=== PATIENT | female | born 1990 | race Caucasian/White ===

== ENCOUNTER → 2023-12-24 09:01 | Outpatient (REF) | payer BC, SELFPAY ==
[2023-12-24 10:00] LABS: % Basophils 0.4 % (0-2); % Eosinophils 0.8 % (0-6); % Immature Granulocytes 0.4 % (0-0.5); % Lymphocytes 29.8 % (20.5-51.1); % Monocytes 6.5 % (1.7-9.3); % Neutrophils 62.1 % (42.2-75.2); Absolute Eosinophils 0.1 10^3/uL (0-0.7); Absolute Lymphocytes 2.5 10^3/uL (1.2-3.4); Absolute Monocytes 0.5 10^3/uL (0.1-0.6); Absolute Neutrophils 5.2 10^3/uL (1.4-6.5); Hematocrit 38.1 % (37.0-47.0); Mean Corp Hgb Conc. 34.1 g/dL (33.0-37.0); Mean Corpuscular Hgb 30.9 pg (27.0-31.0); Mean Corpuscular Volume 90.5 fL (81.0-99.0); Mean Platelet Volume 9.1 fL (7.4-10.4); Nucleated Red Blood Cells % 0 %; Platelet Count 371 10^3/uL (130-400); Red Blood Cell Count 4.21 10^6/uL (4.20-5.40); Red Cell Dist. Width 12.1 % (11.5-14.5); White Blood Cell Count 8.4 10^3/uL (4.8-10.8)
[2023-12-24 10:42] LABS: ALT (SGPT) 18 U/L (0-35); AST (SGOT) 20 U/L (14-36); Albumin 4.6 g/dl (3.5-5.0); Alkaline Phosphatase 53 U/L (38-126); Blood Urea Nitrogen 14 mg/dl (7-17); Calcium 9.3 mg/dl (8.4-10.2); Carbon Dioxide 24 mmol/L (22-30); Chloride 101 mmol/L (98-107); Glucose 107 mg/dl (70-99); HDL Cholesterol 53 mg/dl; LDL Cholesterol, Calculated 145 mg/dl; Potassium 4.6 mmol/L (3.5-5.1); Sodium 138 mmol/L (135-145); Total Bilirubin 0.3 mg/dl (0.2-1.3); Total Cholesterol 225 mg/dl (50-199); Total Protein 7.1 g/dl (6.3-8.2); Triglyceride 137 mg/dl (10-149); Very Low Density Lipoprotein 27 mg/dl (0-30); eGFR > 60.00
[2023-12-26 08:13] LABS: Quantiferon Mitogen minus NIL 9.95 IU/mL; Quantiferon NIL 0.05 IU/mL; Quantiferon Plus TB2 minus NIL 1.57 IU/mL (<=0.34); Quantiferon TB Gold Plus Positive (Negative)
== END ==
LOC: REG 09:01
PROVIDERS: ATTENDING PHYSICIAN Physician Assistant
DX: R76.12 Nonspecific reaction to cell mediated immunity measurement of gamma interferon antigen response without active tuberculosis (principal); Z13.1 Encounter for screening for diabetes mellitus; Z13.29 Encounter for screening for other suspected endocrine disorder
CPT/HCPCS: 36415; 80053; 80061; 85025; 86480

== ENCOUNTER → 2024-09-27 15:01 | Outpatient (REF) | payer OTHER, SELFPAY | LOC: PNTC 15:01 | PROVIDERS: ATTENDING PHYSICIAN Obstetrics & Gynecology | DX: O24.419 Gestational diabetes mellitus in pregnancy, unspecified control (principal) | CPT/HCPCS: 59025 ==

== ENCOUNTER 2024-10-08 14:43 | Inpatient (IN) | payer OTHER, SELFPAY ==
[2024-10-08 14:59] VITALS: BP 143/93; BMI 39.0
[2024-10-08] MEDS: NSS 1000 IV (16:10)
[2024-10-08 16:23] LABS: Hematocrit 34.0 % (37.0-47.0); Hemoglobin 11.6 g/dL (12.0-16.0); Mean Corp Hgb Conc. 34.1 g/dL (33.0-37.0); Mean Corpuscular Volume 89.2 fL (81.0-99.0); Platelet Count 263 10^3/uL (130-400); Red Cell Dist. Width 13.3 % (11.5-14.5)
[2024-10-08 16:23] LABS: Urine Character Clear (Clear)
[2024-10-08] MEDS: PITOCIN 30 UNITS/NSS 500 ML IV (16:25)
[2024-10-08 16:33] LABS: Urine Red Blood Cell 0-2 /HPF (0-2); Urine Squamous Cell 16-20 /LPF (Few); Urine White Cell 0-2 /HPF (0-5)
[2024-10-08 16:43] LABS: ALT (SGPT) 13 U/L (0-35); AST (SGOT) 23 U/L (14-36); Albumin 3.8 g/dl (3.5-5.0); Alkaline Phosphatase 145 U/L (38-126); Blood Urea Nitrogen 9 mg/dl (7-17); Calcium 8.8 mg/dl (8.4-10.2); Carbon Dioxide 21 mmol/L (22-30); Chloride 107 mmol/L (98-107); Estimated Creatinine Clearance > 125 ml/min; Glucose 152 mg/dl (70-99); Potassium 4.3 mmol/L (3.5-5.1); Sodium 134 mmol/L (135-145); Total Protein 6.3 g/dl (6.3-8.2); eGFR > 60.00
[2024-10-08 17:17] LABS: Glucose - Point of Care 133 mg/dl (70-99)
[2024-10-08] MEDS: NOVOLIN R INSULIN INFUSION 100 IV (18:07)
[2024-10-08] MEDS: LR 1000 IV (18:08)
[2024-10-08 19:18] LABS: Glucose - Point of Care 80 mg/dl (70-99)
[2024-10-08] MEDS: TRANDATE 200 MG PO (19:40)
[2024-10-08] MEDS: PENICILLIN 110 UNITS IV (19:45)
[2024-10-08 20:20] LABS: Glucose - Point of Care 92 mg/dl (70-99)
[2024-10-08] MEDS: FENTANYL/BUPIVACAINE 100 EPIDURAL (21:40)
[2024-10-08] MEDS: SUBLIMAZE 100 MCG EPIDURAL (21:40)
[2024-10-08 22:24] LABS: Glucose - Point of Care 108 mg/dl (70-99)
[2024-10-08] MEDS: PENICILLIN 55 UNITS IV (23:36)
[2024-10-09 00:30] LABS: Glucose - Point of Care 111 mg/dl (70-99)
[2024-10-09] MEDS: LR 1000 IV (00:30)
[2024-10-09] MEDS: COLACE 100 MG PO ×2 (08:47→20:19)
[2024-10-09] MEDS: PRENATAL PLUS 1 TABLET PO (08:47)
[2024-10-09] MEDS: MOTRIN 600 MG PO ×2 (08:47→20:18)
[2024-10-09] MEDS: TRANDATE 200 MG PO ×2 (08:48→20:19)
[2024-10-09] MEDS: PROCTOFOAM-HC FOAM 10 GM RECTAL (20:49)
[2024-10-10 05:04] LABS: Hematocrit 30.3 % (37.0-47.0); Hemoglobin 10.2 g/dL (12.0-16.0); Mean Corp Hgb Conc. 33.7 g/dL (33.0-37.0); Mean Corpuscular Volume 90.2 fL (81.0-99.0); Platelet Count 214 10^3/uL (130-400); Red Cell Dist. Width 13.5 % (11.5-14.5)
[2024-10-10 05:28] LABS: ALT (SGPT) 16 U/L (0-35); AST (SGOT) 29 U/L (14-36); Albumin 3.1 g/dl (3.5-5.0); Alkaline Phosphatase 113 U/L (38-126); Blood Urea Nitrogen 12 mg/dl (7-17); Calcium 8.4 mg/dl (8.4-10.2); Carbon Dioxide 23 mmol/L (22-30); Chloride 109 mmol/L (98-107); Estimated Creatinine Clearance > 125 ml/min; Glucose 112 mg/dl (70-99); Potassium 3.9 mmol/L (3.5-5.1); Sodium 135 mmol/L (135-145); Total Protein 5.3 g/dl (6.3-8.2); eGFR > 60.00
[2024-10-10] MEDS: COLACE 100 MG PO ×2 (08:00→20:33)
[2024-10-10] MEDS: TRANDATE 200 MG PO ×2 (08:01→20:32)
[2024-10-10] MEDS: PRENATAL PLUS 1 TABLET PO (08:01)
[2024-10-10] MEDS: MOTRIN 600 MG PO ×2 (08:05→20:32)
[2024-10-11] MEDS: COLACE 100 MG PO (08:03)
[2024-10-11] MEDS: PRENATAL PLUS 1 TABLET PO (08:03)
[2024-10-11] MEDS: TRANDATE 200 MG PO (08:06)
[2024-10-11] MEDS: MOTRIN 600 MG PO (08:08)
[2024-10-12 13:55] LABS: Syphilis/T. pallidum Ab Reflex Negative (Negative)
== END 2024-10-11 11:01 | disposition home or self-care (01) | DRG 807 ==
LOC: LDRP 14:43
PROVIDERS: Obstetrics & Gynecology; ADMITTING PHYSICIAN Obstetrics & Gynecology; FAMILY PHYSICIAN Physician Assistant Medical
PROC: 10E0XZZ Delivery of Products of Conception, External Approach (ICD-10-PCS; 2024-10-08)
PROC: 10907ZC Drainage of Amniotic Fluid, Therapeutic from Products of Conception, Via Natural or Artificial Opening (ICD-10-PCS; 2024-10-08)
PROC: 3E033VJ Introduction of Other Hormone into Peripheral Vein, Percutaneous Approach (ICD-10-PCS; 2024-10-08)
DX: O16.4 Unspecified maternal hypertension, complicating childbirth (principal); Z37.0 Single live birth; Z3A.39 39 weeks gestation of pregnancy; O24.424 Gestational diabetes mellitus in childbirth, insulin controlled; O99.824 Streptococcus B carrier state complicating childbirth
CPT/HCPCS: 36415; 80053; 81003; 81015; 82570; 82962; 84156; 85027; 86780; 86850; 86900; 86901; 88307